=== PATIENT | female | born 1990 | race Caucasian/White ===

== ENCOUNTER 2016-06-28 17:06 | Emergency (ER) | payer OTHER | END 2016-06-28 17:38 | disposition home or self-care (01) | LOC: ER 17:06 | DX: L50.9 Urticaria, unspecified (principal); F41.9 Anxiety disorder, unspecified; E66.9 Obesity, unspecified; Z79.899 Other long term (current) drug therapy; Z88.1 Allergy status to other antibiotic agents ==